=== PATIENT | male | born 1965 | race Caucasian/White ===

== ENCOUNTER 2021-12-30 15:27 | Inpatient (IN) | payer SELFPAY ==
[~2021-12-30] VITALS: Ht 177.8 cm; Wt 129.6 kg
[~2021-12-30 15:27] MED LIST: AMLO2.5T2 PO; ASPI81TA52 PO
[2021-12-30] MEDS ORDERED: heparin 25,000 UNIT/250ml bag 250 ML IV PRN (15:40)
[2021-12-30] MEDS ORDERED: heparin 10,000 units/1 ML INJ IV ONE ×2 (15:40→15:45)
[2021-12-30] MEDS ORDERED: heparin 10,000 units/1 ML INJ IV PRN ×2 (15:40→15:45)
--- NOTE | 2021-12-30 15:54 | NUR ---
RAMÓN LIU [id number]
[2021-12-30] MEDS: heparin 25,000 UNIT/250ml bag 250 ML IV PRN (15:59)
[2021-12-30 16:05] LABS: BASOPHILS % (AUTO) 1.1 % (0-1); EOSINOPHILS % (AUTO) 0.9 % (0-6); HEMATOCRIT 48.6 % (42.0-52.0); HEMOGLOBIN 16.3 g/dl (14.0-17.9); LYMPHOCYTES # (AUTO) 0.7 X10'3 (1.1-4.8); LYMPHOCYTES % (AUTO) 17.4 % (21-51); MEAN CORPUSCULAR HGB CONC 33.5 g/dL (33.0-36.5); MEAN CORPUSCULAR VOLUME 98.4 FL (78-98); MEAN PLATELET VOLUME 7.7 FL (7.4-10.4); MONOCYTES # (AUTO) 0.9 X10'3 (0-0.9); MONOCYTES % (AUTO) 22.1 % (2-12); NEUTROPHILS # (AUTO) 2.4 X10'3 (1.8-7.7); NEUTROPHILS % (AUTO) 58.5 % (42-75); PLATELET COUNT 189 X10'3 (140-440); RED BLOOD COUNT 4.94 X10'6 (4.70-6.10); RED CELL DISTRIBUTION WIDTH 13.1 % (11.5-14.5); WHITE BLOOD COUNT 4.2 X10'3 (4.5-11.0)
[2021-12-30 16:12] LABS: APTT 67 SECONDS (22-32)
[2021-12-30 16:17] LABS: ALANINE AMINOTRANSFERASE 26 U/L (12-78); ALBUMIN 3.4 G/DL (3.4-5.0); ALKALINE PHOSPHATASE 78 IU/L (46-116); ANION GAP 8 (8-16); ASPARTATE AMINO TRANSFERASE 25 U/L (10-37); BILIRUBIN,TOTAL 0.4 MG/DL (0.1-1.0); BLOOD UREA NITROGEN 16 MG/DL (7-18); BUN/CREATININE RATIO 15.7 (5.4-32.0); CALCIUM 8.3 MG/DL (8.5-10.1); CHLORIDE 105 MMOL/L (99-107); CREATININE 1.02 MG/DL (0.60-1.10); GLUCOSE 97 MG/DL (70-104); POTASSIUM 3.7 MMOL/L (3.5-5.1); SODIUM 141 MMOL/L (135-145); TOTAL CARBON DIOXIDE 28.2 MMOL/L (24-32); TOTAL PROTEIN 6.7 G/DL (6.4-8.2); eGFR 76 ML/MIN
[2021-12-30 16:24] LABS: MAGNESIUM 1.8 MG/DL (1.5-2.4)
[2021-12-30] MEDS ORDERED: metoprolol tartrate 1mg/ml inj IV PRN (16:30)
[2021-12-30] MEDS ORDERED: ondansetron 4mg rapidly disintigrating tab PO PRN (16:30)
[2021-12-30] MEDS ORDERED: mag hydrox/Alum hydrox/simeth 30ml oral suspension PO PRN (16:30)
[2021-12-30] MEDS ORDERED: acetaminophen 325mg tablet PO PRN ×2 (16:30)
[2021-12-30] MEDS ORDERED: potassium Cl 20 mEq SR tablet PO PRN ×2 (16:30)
[2021-12-30] MEDS ORDERED: regadenoson 0.4mg/5ml syringe IV PRN (16:30)
[2021-12-30] MEDS ORDERED: bisacodyl 10mg suppository rectal RC PRN (16:30)
[2021-12-30] MEDS ORDERED: nitroGLYCERIN 0.4mg SUBLingual tab SL PRN ×2 (16:30)
[2021-12-30] MEDS ORDERED: ondansetron/PF 4mg/2ml inj IV PRN (16:30)
[2021-12-30] MEDS: normal saline 1000ml 1,000 ML IV SCH (16:30)
[2021-12-30] MEDS ORDERED: PERFLUTREN PROTEIN-A MICROSPHR (Optison) 0.22 MG/ML 3ML VIAL IV ONE (16:30)
[2021-12-30] MEDS ORDERED: potassium Cl 40MEQ/1/2NS 520ml 520 ML IV PRN (16:30)
[2021-12-30] MEDS ORDERED: aminophylline 500mg/20ml vial IV PRN (16:30)
[2021-12-30] MEDS ORDERED: magnesium hydroxide 30ml (MOM) UD suspension PO PRN (16:30)
[2021-12-30] MEDS ORDERED: magnesium Cl slow-release 64mg tablet PO PRN (16:30)
[2021-12-30] MEDS ORDERED: morphine 2 MG/ML inj. syringe IV PRN ×2 (16:30)
[2021-12-30] MEDS ORDERED: magnesium 4gm in 100ml NS 100 ML IV PRN (16:30)
[2021-12-30 17:09] LABS: HEMOGLOBIN A1C 6.4 % (4.5-6.2)
[2021-12-30 17:11] LABS: CHOL/HDL RATIO 2.5 (0.00-4.99); CHOLESTEROL 101 MG/DL (0-200); HDL CHOLESTEROL 40 MG/DL (35-60); LDL CHOLESTEROL 55 MG/DL (50-100); PHOSPHORUS 3.4 MG/DL (2.3-4.5); TRIGLYCERIDES 43 MG/DL (20-135)
[2021-12-30] MEDS ORDERED: nicotine 14mg patch - 24hr TD ONE (17:45)
[2021-12-30] MEDS ORDERED: CLOP75TA34 PO (18:08)
[2021-12-30] MEDS ORDERED: CARV-50 PO (18:08)
[2021-12-30] MEDS ORDERED: LISI5TAB22 PO (18:08)
[2021-12-30] MEDS ORDERED: ATOR10TA70 PO (18:08)
[2021-12-30] MEDS ORDERED: ASPI-1265 PO (18:08)
[2021-12-30] MEDS: heparin, porcine 5000 units/ml vial SQ SCH (20:00)
[2021-12-30] MEDS: K and/or MAG REPLACEMENT MC SCH (20:00)
[2021-12-30] MEDS: docusate sod 100mg capsule PO SCH (20:00)
[2021-12-30] MEDS ORDERED: temazepam 15mg capsule PO PRN (21:00)
[2021-12-31] VITALS (11 sets, daily range): BP systolic 101–154; BP diastolic 52–93
[2021-12-31] MEDS: normal saline 1000ml 1,000 ML IV SCH ×2 (02:30→12:30)
--- NOTE | 2021-12-31 06:54 | NUR ---
Patient in room PCU 3020. I have received report from Etta MILLER and had the opportunity to ask questions and assume patient care.
[2021-12-31 07:37] LABS: BASOPHILS % (AUTO) 1.2 % (0-1); EOSINOPHILS % (AUTO) 0.8 % (0-6); HEMATOCRIT 46.2 % (42.0-52.0); LYMPHOCYTES # (AUTO) 1.4 X10'3 (1.1-4.8); LYMPHOCYTES % (AUTO) 43.8 % (21-51); MEAN CORPUSCULAR HEMOGLOBIN 33.9 PG (27.0-31.0); MEAN CORPUSCULAR HGB CONC 34.6 g/dL (33.0-36.5); MEAN PLATELET VOLUME 7.9 FL (7.4-10.4); MONOCYTES # (AUTO) 0.8 X10'3 (0-0.9); MONOCYTES % (AUTO) 24.1 % (2-12); NEUTROPHILS % (AUTO) 30.1 % (42-75); PLATELET COUNT 159 X10'3 (140-440); RED BLOOD COUNT 4.71 X10'6 (4.70-6.10); RED CELL DISTRIBUTION WIDTH 13.2 % (11.5-14.5); WHITE BLOOD COUNT 3.3 X10'3 (4.5-11.0)
[2021-12-31 07:52] LABS: ALANINE AMINOTRANSFERASE 27 U/L (12-78); ALKALINE PHOSPHATASE 72 IU/L (46-116); ANION GAP 9 (8-16); ASPARTATE AMINO TRANSFERASE 30 U/L (10-37); BILIRUBIN,TOTAL 0.3 MG/DL (0.1-1.0); BLOOD UREA NITROGEN 15 MG/DL (7-18); BUN/CREATININE RATIO 16.7 (5.4-32.0); CALCIUM 7.8 MG/DL (8.5-10.1); CHLORIDE 105 MMOL/L (99-107); GLUCOSE 98 MG/DL (70-104); MAGNESIUM 1.9 MG/DL (1.5-2.4); PHOSPHORUS 3.6 MG/DL (2.3-4.5); POTASSIUM 3.8 MMOL/L (3.5-5.1); SODIUM 139 MMOL/L (135-145); TOTAL CARBON DIOXIDE 25.2 MMOL/L (24-32); eGFR 88 ML/MIN
[2021-12-31] MEDS ORDERED: nicotine 14mg patch - 24hr TD SCH (08:00)
[2021-12-31] MEDS: heparin, porcine 5000 units/ml vial SQ SCH (08:00)
[2021-12-31] MEDS: K and/or MAG REPLACEMENT MC SCH (08:00)
[2021-12-31] MEDS: docusate sod 100mg capsule PO SCH (08:13)
[2021-12-31 08:29] LABS: TOTAL CELLS COUNTED 100
[2021-12-31] MEDS ORDERED: aspirin 81mg tab.chew PO SCH (08:30)
[2021-12-31 08:31] LABS: PLATELET ESTIMATE NORMAL
[2021-12-31] MEDS: heparin 25,000 UNIT/250ml bag 250 ML IV PRN (10:33)
[2021-12-31] MEDS ORDERED: NITR0.4T51 SL (15:59)
[2021-12-31] MEDS ORDERED: NICO-631 TD (15:59)
[2021-12-31] MEDS ORDERED: ATOR40TA PO (16:01)
--- NOTE | 2021-12-31 17:49 | NUR ---
Patient stable for discharge per Dr. Prince. All discharge instructions reviewed with patient and all questions answered. Pt verbalized understanding. New prescriptions e-scripted to pharmacy in [place]. PIV x2 discontinued, cannulas intact. Tele Discontinued. All belongings collected and sent with patient. Picked up by friend.
== END 2021-12-31 17:08 | disposition home or self-care (01) | DRG 303 ==
LOC: ER 15:27 → ED HOLD 16:32 → PCU 3S 12-31 01:10
PROVIDERS: ADMIT Family Medicine; ATTEND Family Medicine
PROC: 4A02XM4 Measurement of Cardiac Total Activity, External Approach (ICD-10-PCS; principal; 2021-12-31)
PROC: 3E033HZ Introduction of Radioactive Substance into Peripheral Vein, Percutaneous Approach (ICD-10-PCS; 2021-12-31)
DX: I25.119 Atherosclerotic heart disease of native coronary artery with unspecified angina pectoris (principal); Z68.41 Body mass index [BMI] 40.0-44.9, adult; E66.9 Obesity, unspecified; E78.00 Pure hypercholesterolemia, unspecified; I10 Essential (primary) hypertension; I25.2 Old myocardial infarction; Z98.61 Coronary angioplasty status; Z72.0 Tobacco use; Z88.0 Allergy status to penicillin
CPT/HCPCS: 36415; 71045; 71250; 78452; 80053; 80061; 83036; 83735; 83880; 84100; 84443; 84484; 85007; 85025; 85610; 85730; 87081; 93005; 93017; 93306; 96365; 99285; A9500; G0378; J1644; J2785; J7030